=== PATIENT | male | born 1975 | race Hispanic/Latino ===

== ENCOUNTER → 2024-11-03 11:50 | Outpatient (REF) | payer BC, SELFPAY | LOC: DHSLP 11:50 | PROVIDERS: ATTENDING PHYSICIAN Internal Medicine; FAMILY PHYSICIAN Physician Assistant Medical | DX: G47.33 Obstructive sleep apnea (adult) (pediatric) (principal) | CPT/HCPCS: 95800 ==

== ENCOUNTER → 2024-11-18 12:48 | Outpatient (REF) | payer BC, SELFPAY | LOC: HWRCS 12:48 | PROVIDERS: ATTENDING PHYSICIAN Internal Medicine Cardiovascular Disease; FAMILY PHYSICIAN Physician Assistant Medical | DX: R06.02 Shortness of breath (principal) | CPT/HCPCS: 93306 ==

== ENCOUNTER → 2024-11-19 14:24 | Outpatient (REF) | payer BC, SELFPAY | LOC: RCS 14:24 | PROVIDERS: ATTENDING PHYSICIAN Internal Medicine Cardiovascular Disease; FAMILY PHYSICIAN Physician Assistant Medical | DX: R07.9 Chest pain, unspecified (principal) | CPT/HCPCS: 93017 ==

== ENCOUNTER → 2024-12-25 16:40 | Outpatient (REF) | payer BC, SELFPAY ==
[2024-12-25 17:26] LABS: % Basophils 0.8 % (0-2); % Eosinophils 2.8 % (0-6); % Immature Granulocytes 0.8 % (0-0.5); % Lymphocytes 29.4 % (20.5-51.1); % Monocytes 10.8 % (1.7-9.3); % Neutrophils 55.4 % (42.2-75.2); Absolute Basophils 0.1 10^3/uL (0-0.2); Absolute Eosinophils 0.2 10^3/uL (0-0.7); Absolute Immature Granulocytes 0.1 10^3/uL (0-0.05); Absolute Lymphocytes 2.2 10^3/uL (1.2-3.4); Absolute Monocytes 0.8 10^3/uL (0.1-0.6); Absolute Neutrophils 4.1 10^3/uL (1.4-6.5); Hematocrit 43.7 % (39.0-52.0); Hemoglobin 14.7 g/dL (13.0-18.0); Mean Corp Hgb Conc. 33.6 g/dL (33.0-37.0); Mean Corpuscular Hgb 28.5 pg (27.0-31.0); Mean Corpuscular Volume 84.9 fL (80.0-94.0); Mean Platelet Volume 10.3 fL (7.4-10.4); Nucleated Red Blood Cells % 0 % (-); Platelet Count 254 10^3/uL (130-400); Red Blood Cell Count 5.15 10^6/uL (4.70-6.10); Red Cell Dist. Width 12.7 % (11.5-14.5); White Blood Cell Count 7.4 10^3/uL (4.8-10.8)
[2024-12-25 17:45] LABS: Blood Urea Nitrogen 13 mg/dl (9-20); Calcium 9.5 mg/dl (8.4-10.2); Carbon Dioxide 28 mmol/L (22-30); Chloride 108 mmol/L (98-107); Glucose 118 mg/dl (70-99); Potassium 5.1 mmol/L (3.5-5.1); Sodium 143 mmol/L (135-145); eGFR > 60.00
== END ==
LOC: REG 16:40
PROVIDERS: ATTENDING PHYSICIAN Orthopaedic Surgery Hand Surgery; FAMILY PHYSICIAN Physician Assistant Medical
DX: Z01.818 Encounter for other preprocedural examination (principal)
CPT/HCPCS: 36415; 80048; 85025

== ENCOUNTER → 2025-01-02 14:08 | Outpatient (REF) | payer BC, SELFPAY | LOC: RCS 14:08 | PROVIDERS: ATTENDING PHYSICIAN Orthopaedic Surgery Hand Surgery; FAMILY PHYSICIAN Physician Assistant Medical | DX: Z01.818 Encounter for other preprocedural examination (principal) | CPT/HCPCS: 93005 ==